=== PATIENT | male | born 1960 | race Caucasian/White ===

== ENCOUNTER → 2021-12-14 08:11 | Outpatient (CLI) | payer OTHER, SELFPAY ==
[2021-12-14 09:37] LABS: Add Manual Diff / Slide Review NO; Basophils Absolute Auto 0 /uL (0-100); Basophils Percent Auto 0.6 % (0-2); Eosinophils Absolute Auto 200 /uL (0-450); Eosinophils Percent Auto 3.2 % (2-4); Hematocrit 45.9 % (41-53); Hemoglobin 15.9 g/dL (13.5-17.5); Lymphocytes Absolute Auto 2200 /uL (1100-4500); Mean Corpuscular HGB Conc 34.6 % (30-36); Mean Corpuscular Volume 86.7 fL (80-100); Monocytes Absolute Auto 400 /uL (0-900); Monocytes Percent Auto 8.2 % (3-14); Neutrophils Absolute Auto 2100 /uL (1500-7000); Platelet Count 245 X10^3/uL (150-400); Red Blood Cell Count 5.29 X10^6/uL (4.5-5.9); Red Cell Distribution Width 13.6 % (11.6-14.8)
[2021-12-14 09:51] LABS: Alanine Aminotransferase 23 IU/L (<50); Albumin 4.6 g/dL (3.5-5.0); Albumin Globulin Ratio 1.5 (1.0-2.8); Alkaline Phosphatase 70 U/L (38-126); Aspartate Aminotransferase 29 IU/L (17-59); BUN Creatinine Ratio 22.9 (6-22); Bilirubin Total 0.6 mg/dL (0.2-1.3); Blood Urea Nitrogen 19 mg/dL (9-20); Calcium 9.5 mg/dL (8.4-10.2); Carbon Dioxide 29 mmol/L (22-32); Chloride 100 mmol/L (98-107); Cholesterol 240 mg/dL (140-199); Estimated Glomerular Filt Rate > 60 mL/min (>60); Glucose 86 mg/dL (70-100); HDL Cholesterol 68 mg/dL (40-60); HEMOLYSIS < 15 (0-50); LDL Cholesterol Calculated 158 mg/dL (<100); Potassium 4.7 mmol/L (3.4-5.1); Sodium 138 mmol/L (137-145); Total Protein 7.6 g/dL (6.3-8.2); Triglycerides 71 mg/dL (35-150)
[2021-12-14 10:23] LABS: Prostate Specific Antigen Scrn 2.21 ng/mL (0.1-4.0)
== END ==
PROVIDERS: PCP Family Medicine; Referring Provider Family Medicine; Visit Provider Family Medicine
DX: E78.5 Hyperlipidemia, unspecified (principal); N40.0 Benign prostatic hyperplasia without lower urinary tract symptoms; Z12.11 Encounter for screening for malignant neoplasm of colon; Z12.5 Encounter for screening for malignant neoplasm of prostate
CPT/HCPCS: 36415; 80053; 80061; 85025; G0103

== ENCOUNTER → 2021-12-26 14:40 | Outpatient (CLI) | payer OTHER, SELFPAY ==
--- NOTE | 2021-12-26 14:43 | DI.CT.S_ITS ---
PROCEDURE: CT UE RT WO CON INDICATIONS: EVALUATE JOINT IN RT SHOULDER TECHNIQUE: Noncontrast 1-1.5 mm thick sections acquired from the acromioclavicular joint to the inferior scapula, with coronal and sagittal reformatting. COMPARISON: [facility] [place], [place], XR SHOULDER 2+ VIEWS RIGHT, 12/18/2021, 17:27. FINDINGS: Image quality: Excellent. Bones: No acute osseous fracture or dislocation. Postsurgical changes are seen from prior labral repair with a metallic anchor in the anteroinferior glenoid. There is moderate to severe joint space narrowing at the glenohumeral joint with subchondral sclerosis, marginal osteophyte formation, and subchondral cystic changes. There is mild remodeling of the glenoid articular surface with approximately 7 degrees glenoid retroversion relative to the midplane of the scapula at the mid glenoid level. Mild degenerative changes are seen at the acromioclavicular joint. Soft tissues: There is a small joint effusion. A 7 mm ossification at the region of the superior subscapularis recess is most likely an intra-articular loose body. The shoulder musculature is well-developed. No focal rotator cuff muscle atrophy. The tendons, ligaments, labrum, and articular cartilages are not well evaluated with standard CT. IMPRESSION: 1. Moderate to severe degenerative changes are seen at the glenohumeral joint with joint space narrowing, subchondral sclerosis, marginal osteophyte formation, and subchondral cystic changes. There is remodeling of the glenoid articular surface with approximately 7 degrees glenoid retroversion relative to the midplane of the scapula at the mid glenoid level. 2. Postsurgical changes from prior labral repair. 3. Small glenohumeral effusion with suspected ossified intra-articular loose body. 4. Mild acromioclavicular osteoarthrosis. Dictated by: Rodney Warren M.D. on 12/26/2021 at 20:11 Approved by: Rodney Warren M.D. on 12/26/2021 at 20:17
== END ==
PROVIDERS: PCP Family Medicine; Referring Provider Orthopaedic Surgery; Visit Provider Orthopaedic Surgery
DX: M19.011 Primary osteoarthritis, right shoulder (principal); M25.411 Effusion, right shoulder
CPT/HCPCS: 73200

== ENCOUNTER → 2022-01-09 13:11 | Outpatient (CLI) | payer OTHER, SELFPAY ==
--- NOTE | 2022-01-09 13:12 | DI.RAD.S_ITS ---
PROCEDURE: [place] WRIST INJECTION MR/CT LT INDICATIONS: Pain in left wrist COMPARISON: [facility] [place], CR, XR WRIST 3+ VIEWS LEFT, 12/18/2021, 17:04. TECHNIQUE: After informed consent had been obtained, the wrist was examined fluoroscopically, and a site chosen for injection of the radiocarpal compartment from a dorsal approach. Skin was prepped and draped in a sterile fashion and 1% lidocaine infiltrated from the skin down to the articular surface. A hypodermic needle was then introduced into the articular space and a modest amount of contrast medium was instilled confirming intra-articular needle tip placement. This was followed by approximately 4 mL of a dilute gadolinium solution. Needle was removed and dressing was applied. The patient experienced no complications throughout the procedure and left the fluoroscopic suite in no apparent distress. FINDINGS: A single fluoroscopic spot image demonstrates intra-articular location to injected iodinated contrast. IMPRESSION: Successful fluoroscopic-guided administration of dilute Gadolinium solution for wrist MR arthrogram. Dictated by: Rodney Warren M.D. on 01/09/2022 at 16:57 Approved by: Rodney Warren M.D. on 01/09/2022 at 16:57
--- NOTE | 2022-01-09 13:12 | DI.MRI.S_ITS ---
PROCEDURE: MR WRIST LT W CON INDICATIONS: Pain in left wrist TECHNIQUE: After the administration of 3-4 mL of dilute intra-articular Gadolinium contrast into the radiocarpal compartment, coronal T1 spin echo with fat saturation and T2 fast spin echo with fat saturation, axial T1 spin echo and T2 fast spin echo with fat saturation, sagittal T1 spin echo with and without fat saturation through the wrist. COMPARISON: [facility] [place], CR, XR WRIST 3+ VIEWS LEFT, 12/18/2021, 17:04. [facility], , [place] WRIST INJECTION MR/CT LT, 01/09/2022, 13:48. FINDINGS: Image quality: Excellent. Bones and cartilage: The carpal bones are normally aligned. No bone marrow contusions or fractures. No evidence for avascular necrosis. Full-thickness cartilage loss is seen at the radio lunate articulation with subchondral cystic changes and subchondral edema as well as remodeling of the radial articular surface. Mild degenerative cystic changes are seen at the proximal pole of the hamate, within the scaphoid, and in the ulnar styloid. Mild degenerative changes at the 1st carpometacarpal joint. Carpal ligaments: The scapholunate and lunotriquetral ligaments appear intact, without gadolinium extravasation into the mid-carpal compartment. On sagittal images, the pisohamate ligament appears intact. Triangular fibrocartilage complex: A full-thickness defect is seen in the central triangle fibrocartilage disc. The dorsal and volar radioulnar ligaments appear to be intact. There is gadolinium extravasation into the distal radioulnar joint. Tendons and soft tissues: The carpal tunnel structures appear normal, including the median nerve. The ulnar nerve appears normal within Guyon's canal. All six extensor tendon compartments demonstrate normal morphology, without pathologic tendon sheath fluid. No soft tissue ganglion cysts. IMPRESSION: 1. Severe degenerative changes at the radiolunate articulation with full-thickness cartilage loss, subchondral cystic changes, and subchondral edema as well as remodeling of the distal radial articular surface. 2. Moderately-sized full-thickness defect within the central triangle fibrocartilage disc. 3. Osseous edema and cystic changes within the ulnar styloid may be secondary to a prior impaction injury or less likely a chronic erosion. Approved by: Rodney Warren M.D. on 01/10/2022 at 10:33
== END ==
PROVIDERS: PCP Family Medicine; Referring Provider Orthopaedic Surgery; Visit Provider Orthopaedic Surgery
DX: M25.532 Pain in left wrist (principal)
CPT/HCPCS: 20605; 73222; 76000

== ENCOUNTER → 2022-05-24 09:21 | Outpatient (CLI) | payer OTHER, SELFPAY ==
[2022-05-24 10:54] LABS: Cholesterol 209 mg/dL (140-199); HDL Cholesterol 78 mg/dL (40-60); LDL Cholesterol Calculated 116 mg/dL (<100); Triglycerides 75 mg/dL (35-150)
== END ==
PROVIDERS: PCP Family Medicine; Referring Provider Family Medicine; Visit Provider Family Medicine
DX: Z79.899 Other long term (current) drug therapy (principal)
CPT/HCPCS: 36415; 80061

== ENCOUNTER 2024-12-01 06:34 | Day surgery (SDC) | payer OTHER, SELFPAY ==
--- NOTE | 2024-12-01 | PATH_ITS ---
[facility] Accession Number: [id number] No. of containers..01 Tissue . 01 Material submitted: . colon - ASCENDING POLYPS . 01 Diagnosis: ASCENDING POLYPS: Tubular adenomas. Hyperplastic polyps. [facility] 12/12/2024 1231 Local . 01 Electronically signed: . Song Lamb MD, Pathologist NPI- [id number] . 01 Gross description: . Received in formalin with two identifiers and ascending polyps are multiple samayoa soft tissue fragments ranging from 0.3 to 0.7 cm in greatest dimension, entirely submitted in A1. (AER:[id number]) /MRV 12/12/2024 1231 Local . 01 Pathologist provided ICD-10: D12.2 . 01 CPT . 016880 Specimen Comment: A courtesy copy of this report has been sent to [phone] Performed at: [address] [id number] MD Song Lamb MD Phone: [phone]
[2024-12-01 07:14] VITALS: BP 152/94; PULSE 72; RESP 16; TEMP 36.2; O2SAT 99
[2024-12-01] MEDS: LACTATED RINGERS 1,000 ML 42 ML IV (07:24)
--- NOTE | 2024-12-01 07:38 | P.HP_ITS ---
History of Present Illness History of Present Illness Date Patient Seen: 12/01/24 Time Patient Seen: 07:38 [place] [facility] [place]: Sudarshan is a 64 year old man here for a colonoscopy. His last colonoscopy was in 2019 and he had a few polyps removed. I do not have the pathology results. He has no known family history of colon cancer. [facility] Medical History (Updated 06/02/24 @ 10:47 by Manan Quinones DO) Sinusitis, chronic Right leg numbness Pain of right lower leg Trigger finger, right middle finger Hyperlipidemia, mixed FHx: melanoma Oral herpes Chicken pox (~1967) Chronic right shoulder pain (~1992) Chronic pain of left wrist Vertigo (~2019) Colon polyps (~2018) Surgical History (Updated 02/19/22 @ 19:00 by Tanja Grider) Anesthesia History of surgery on left wrist (~2011) History of shoulder surgery (~1997) Family History (Updated 02/19/22 @ 19:01 by Tanja Grider) Mother Cancer Sister Cancer Father No problems noted. Social History Smoking Status: Never smoker Meds Home Medications and Allergies Home Medications ?Medication ?Instructions ?Recorded ?Confirmed ?Type sildenafil 100 mg tablet 100 mg PO DAILY PRN erectile 12/03/21 12/01/24 History dysfunction tamsulosin 0.4 mg capsule 0.4 mg PO DAILY 12/03/21 History valacyclovir 500 mg tablet 1,000 mg PO DAILY PRN 12/0306/02/24 History (Valtrex) rosuvastatin 10 mg tablet 10 mg PO DAILY #90 tabs 07/2106/02/24 Rx cetirizine 10 mg capsule (All Day 10 mg PO DAILY PRN 0 06/02/24 06/02/24 History Allergy (cetirizine)) pregabalin 100 mg capsule 100 mg PO BID 06/02/2412/01 History Allergies Allergy/AdvReac Type Severity Reaction Status Date / Time No Known Drug Allergies Allergy Verified 12/01/24 07:12 Exam Vital Signs (past 8 hours): - 12/01/24 07:14 Temperature 97.2 F L Pulse Rate 72 Respiratory Rate 16 Blood Pressure 152/94 H Pulse Oximetry 99 Oxygen Delivery Method Room Air Oxygen Delivery Method Room Air Const General: healthy appearing Resp Effort & Inspection: normal respiratory effort Assessment & Plan Assessment and plan (1) Colon polyps: Qualifiers: Colon polyp type: unspecified Colon location: unspecified part of colon Qualified Code(s): K63.5 - Polyp of colon Status: Acute Plan Colonoscopy for history of polyps Time-Based Coding :: [TOTAL MINUTES] spent with patient and on the chart (including review of chart, obtaining history, exam, reviewing outside data, placing orders, documenting exam and treatment plan, and counseling patient) on [DATE]. PROFEE Pathology Secretary Document charge(s): No
[2024-12-01 08:10] VITALS: BP 141/85; PULSE 74; RESP 16; TEMP 36.6; O2SAT 98
--- NOTE | 2024-12-01 08:11 | P.OP.COLON_ITS ---
Operative Date/Time/Diagnoses Date of procedure: 12/01/24 Time of procedure: 08:11 Pre-op diagnosis: History of polyps Post-op diagnosis: same Procedure & Clinicians Study performed: Colonoscopy Same procedure(s) as scheduled: Yes Surgeon: Dhaval Barney Anesthesia Type: MAC +/- Procedure Notes Procedure in detail: Surgeon: Dhaval Barney MD Anesthesia: Bhavya Mary Beth CONFIGURATION MANAGER Procedure: The patient was brought to the endoscopy suite, placed in left lateral decubitus position. The patient was connected to monitoring devices. A time-out was performed. Sedation was administered. Once the patient was adequately sedated, a digital rectal exam was performed and was normal. The scope was then inserted and advanced to the cecum where the appendiceal orifice was identified and photographed. The scope was then slowly withdrawn over greater than 6 minutes. The mucosa was thoroughly inspected. There were 2 small polyps, roughly 5 mm each, in the ascending colon and were removed with cold snare and sent together as ?ascending polyps?. The scope was retroflexed i n the rectum. Mild hemorrhoids were noted. The scope was straightened and removed. The patient was awakened and brought to recovery. Scope withdrawal time: 16 minutes Sedation time: 23 minutes EBL: 3 mL Findings: 2 small ascending colon polyps Post-procedure Disposition: PACU
[2024-12-01 08:15] VITALS: BP 139/91; PULSE 69; RESP 16; O2SAT 98
[2024-12-01 08:20] VITALS: BP 131/83; PULSE 69; RESP 16; TEMP 36.6; O2SAT 98
[2024-12-01 08:25] VITALS: BP 143/89; PULSE 70; RESP 16; TEMP 36.6; O2SAT 98
== END 2024-12-01 08:40 | disposition home or self-care (01) ==
PROVIDERS: PCP Family Medicine; Referring Provider Surgery; Visit Provider Surgery
PROC: 0DJD8ZZ Inspection of Lower Intestinal Tract, Via Natural or Artificial Opening Endoscopic (ICD-10-PCS; CPT 45378; principal; 2024-12-01 07:45)
DX: Z12.11 Encounter for screening for malignant neoplasm of colon (principal); Z86.0100 Personal history of colon polyps, unspecified; K64.9 Unspecified hemorrhoids; D12.2 Benign neoplasm of ascending colon
CPT/HCPCS: 45385; J2704